=== PATIENT | male | born 1970 | race American Indian/Alaskan Native ===

== ENCOUNTER 2019-05-16 14:49 | Emergency (ER) | payer MEDICAID, OTHER, SELFPAY ==
[2019-05-16 15:17] VITALS: BP 167/96; PULSE 72; RESP 16; TEMP 36.8; O2SAT 99; BMI 24.3
--- NOTE | 2019-05-16 15:20 | DI.RAD.S_ITS ---
PROCEDURE: XR HAND LT MIN 3V INDICATIONS: hit in hand with crab pot TECHNIQUE: 3 views of the hand(s) acquired. COMPARISON: [facility], , HAND 3V LEFT, 07/03/2014, 17:23. FINDINGS: Bones: Comminuted fracture of the thumb distal phalanx. There is intra-articular extension. Soft tissues: No suspicious soft tissue calcifications. IMPRESSION: Left thumb distal phalanx fracture Dictated by: Eliseo Escobar M.D. on 05/16/2019 at 15:41 Approved by: Eliseo Escoabr M.D. on 05/16/2019 at 15:44
--- NOTE | 2019-05-16 18:22 | ED.UPPEXIN ---
HPI - Extremity Injury (Upper) General Chief Complaint: Extremity Injury, Upper Stated Complaint: LT THUMP HURTING Time Seen by Provider: 05/16/19 18:14 Source: patient Mode of arrival: ambulatory Limitations: no limitations History of Present Illness HPI narrative: 49-year-old male nonsmoker with history of hypertension and chronic pain complains of left thumb pain after crushing it and a crab pot period is closed, he denies any numbness or tingling, he has pain with motion and improvement with rest. He denies other injury and is otherwise well and free of complaint MD complaint: injury to: left Onset (ago): day(s) Other injuries: none Handedness: right Place: work Severity: moderate Relieving factors: immobilization Exacerbating factors: movement of extremity Context: direct blow Associated symptoms: denies other symptoms Related Data Home Medications Medication Instructions Recorded Confirmed amlodipine 10 mg PO DAILY #0 07/20/16 05/16/19 chlorthalidone #0 07/20/16 gabapentin 1,200 mg PO TID 05/16/19 05/16/19 hydrocodone-acetaminophen 1 tab PO Q6H PRN 05/16/19 05/16/19 nitroglycerin 0.4 mg SUBLINGUAL PRN PRN 05/16/19 05/16/19 oxycodone 5 mg PO Q8H PRN 05/16/19 05/16/19 Previous Rx's Medication Instructions Recorded atorvastatin [Lipitor] 40 mg PO HS #30 05/30/12 clopidogrel [Plavix] 75 mg PO QDAY #30 05/30/12 cyclobenzaprine 10 mg PO QHSP PRN #15 tab 08/16/16 meloxicam [Mobic] 7.5 mg PO BIDCC PRN #20 tab 11/29/16 Allergies Allergy/AdvReac Type Severity Reaction Status Date / Time Sulfa (Sulfonamide Allergy Mild RASH Unverified 05/16/19 15:20 Antibiotics) [SULFA (SULFONAMIDE ANTIBIOTICS)] Review of Systems Constitutional Denies chills, Denies fever(s), Denies lethargy and Denies weakness Eyes Denies change in vision, Denies eye discharge, Denies irritation and Denies loss of vision ENT Ears, Nose, Mouth, and Throat: Denies change in voice, Denies neck pain and Denies sore throat Cardiovascular Denies chest pain, Denies irregular heart rhythm, Denies lightheadedness, Denies palpitations, Denies dyspnea, Denies dyspnea on exertion and Denies orthopnea Respiratory Denies cough, Denies dyspnea, Denies dyspnea on exertion and Denies wheezing Gastrointestinal Gastrointestinal: Denies abdominal pain, Denies change in bowel habits, Denies diarrhea, Denies nausea and Denies vomiting Genitourinary Denies hematuria, Denies flank pain, Denies urinary incontinence and Denies urinary urgency Musculoskeletal Reports joint swelling, Reports limited range of motion and Denies neck pain Integumentary/Breasts Denies pruritus, Denies erythema, Denies rash and Denies wounds Neurologic Denies confusion, Denies loss of vision and Denies weakness Psychiatric Denies anxiety, Denies confusion, Denies depression, Denies homicidal ideation and Denies suicidal ideation Endocrine Denies palpitations Hematologic/Lymphatic Denies easy bruising Allergic/Immunologic Denies wheezing Exam Narrative Exam Narrative: GEN: AOx3 and in mild distress EYES: Pupils are equal, round, and reactive to light and accommodation. Extraoccular muscles are intact bilaterally. There is no subconjunctival hemorrhage or exudate. CHEST: Lungs are clear to auscultation bilaterally and free of wheezes, rales, or rhonchi. Heart rate is regular rhythm, there are no murmurs, clicks, rubs, or gallops. There is no chest wall tenderness. ABD: Abdomen is soft and nontender. There is no guarding or rebound. Bowel sounds are normal in all 4 quadrants. There is no mass or organomegaly. EXT: Decreased range of motion of left thumb secondary to pain, there is swelling, no subungual hematoma. Closed, isolated and neurovascularly intact SKIN: Warm, pink, and dry. No erythema or rash Initial Vital Signs Initial Vital Signs: Vital Signs Temperature 98.2 F 05/16/19 15:17 Pulse Rate 72 05/16/19 15:17 Respiratory Rate 16 05/16/19 15:17 Blood Pressure 167/96 H 05/16/19 15:17 Pulse Oximetry 99 05/16/19 15:17 Procedures Orthopedic Splinting/Casting Injury #1: Side: left Upper Extremity Injury Location: finger Upper Extremity Immobilizer: thumb spica Post splinting neuro exam: intact Post splinting vascular exam: intact Placed by: Nursing Course Orders Ordered: ED Orders 05/16/19 15:20 XR finger LT min 2V Stat Discontinued Medications Acetaminophen (Tylenol) 650 mg PO NOW ONE Stop: 05/16/19 18:17 Last Admin: 05/16/19 19:04 Dose: 650 mg Consultations Consultation #1: call to diane Dill for thumb spica and follow up Vital Signs - 8 hr 05/16/19 15:17 Temperature 98.2 F Pulse Rate 72 Respiratory Rate 16 Blood Pressure 167/96 H Pulse Oximetry 99 MDM - Extremity Injury (Upper) Imaging Data finger: Radiologist's impression: [address] [address] XRay Report Signed Patient: Hari Massey [facility]#: [id number] : 1970Acct:[id number] Age/Sex: 49 / MDate of Service: 05/16/19 Loc: ED Accession Number: [id number] Procedure: XR finger LT min 2V Ordering Provider: Regina Nava MD PROCEDURE: XR HAND LT MIN 3V INDICATIONS: hit in hand with crab pot TECHNIQUE: 3 views of the hand(s) acquired. COMPARISON: [facility], , HAND 3V LEFT, 07/03/2014, 17:23. FINDINGS: Bones: Comminuted fracture of the thumb distal phalanx. There is intra-articular extension. Soft tissues: No suspicious soft tissue calcifications. IMPRESSION: Left thumb distal phalanx fracture Dictated by: Eliseo Escobar M.D. on 05/16/2019 at 15:41 Approved by: Eliseo Escobar M.D. on 05/16/2019 at 15:44 Discharge Plan Departure Patient Disposition: Home Clinical Impression: Fracture of thumb Qualifiers: Encounter type: initial encounter Fracture type: closed Phalanx: distal Fracture alignment: nondisplaced Laterality: left Qualified Code(s): S62.525A - Nondisplaced fracture of distal phalanx of left thumb, initial encounter for closed fracture Instructions: DI for Finger Fracture Activity Restrictions/Additional Instructions: *You have been diagnosed with [left thumb fracture with joint involvement] *What to do: *Take medications as directed *Follow up with [facility] in 2-3 days, call for an appointment. Let them know you were seen in the Emergency Department and that we ask that you be seen in follow up *Return to ER if you should have any new, worsening or concerning symptoms Prescriptions: No Action atorvastatin [Lipitor] 40 MG tablet 40 mg PO HS Qty: 30 RF: 5 clopidogrel [Plavix] 75 MG tablet 75 mg PO QDAY Qty: 30 RF: 5 chlorthalidone 25 MG tablet Qty: 0 RF: 0 amlodipine 10 MG tablet 10 mg PO DAILY Qty: 0 RF: 0 cyclobenzaprine 10 MG tablet 10 mg PO QHSP PRNQty: 15 RF: 0 meloxicam [Mobic] 7.5 MG tablet 7.5 mg PO BIDCC PRNQty: 20 RF: 0 gabapentin 600 mg tablet 1,200 mg PO TID RF: 0 hydrocodone-acetaminophen 5-325 mg tablet 1 tab PO Q6H PRN (Reason: Pain, Moderate) RF: 0 nitroglycerin 0.4 mg tablet, sublingual 0.4 mg sublingual PRN PRN (Reason: Chest Pain) RF: 0 oxycodone 5 mg tablet 5 mg PO Q8H PRN (Reason: Pain, Moderate) RF: 0 Referrals: Salinas Nagy MD [Physician] -
[2019-05-16] MEDS: ACETAMINOPHEN 325 MG TABLET 650 MG PO (19:04)
== END 2019-05-16 19:10 | disposition home or self-care (01) ==
PROVIDERS: Emergency Provider Emergency Medicine
DX: S62.525A Nondisplaced fracture of distal phalanx of left thumb, initial encounter for closed fracture (principal); W23.0XXA Caught, crushed, jammed, or pinched between moving objects, initial encounter
CPT/HCPCS: 73140; 99282; 99283

== ENCOUNTER → 2019-09-25 10:34 | Outpatient (CLI) | payer MEDICAID, OTHER, SELFPAY ==
--- NOTE | 2019-09-25 | DI.US.S_ITS ---
PROCEDURE: US SCROTUM INDICATIONS: RIGHT TESTICULAR PAIN TECHNIQUE: Real-time scanning was performed of the scrotum and testicles, with image documentation. Color and pulse Doppler interrogation was performed of both testicles. COMPARISON: 04/28/2019. FINDINGS: Right: Testicle is normal in size at 3.7 x 2 x 2.7 cm, and homogenous in echotexture. Epididymis is normal in overall size and morphology. Previously seen right subcentimeter epididymal cyst is no longer present. No hydrocele or varicoceles. Overlying scrotal skin is normal in thickness. Left: Testicle is normal in size at 3 x 5 x 2 x 2.7 cm, and homogeneous in echotexture. Epididymis is normal in overall size and morphology. No hydrocele or varicoceles. Overlying scrotal skin is normal in thickness. Doppler: Color and pulse Doppler demonstrate normal and symmetric arterial flow in both testicles. IMPRESSION: Negative exam. No abnormal identified to explain right testicular pain. No hydrocele. Dictated by: Barak Sánchez M.D. on 09/25/2019 at 17:07 Approved by: Barak Sánchez M.D. on 09/25/2019 at 17:10
== END ==
PROVIDERS: Visit Provider Family Medicine
DX: N50.811 Right testicular pain (principal)
CPT/HCPCS: 76870

== ENCOUNTER 2021-05-19 08:30 | Emergency (ER) | payer MEDICAID, OTHER, SELFPAY ==
[2021-05-19 08:53] VITALS: BP 147/89; PULSE 81; RESP 16; TEMP 36.8; O2SAT 97; BMI 25.8
--- NOTE | 2021-05-19 08:53 | ED.GENADULT ---
HPI - General Adult General Chief complaint: Chest Pain Stated complaint: fell and hurt ribs and hit head on cement Time Seen by Provider: 05/19/21 08:52 History of Present Illness HPI narrative: Patient is a 51-year-old male. Here for evaluation of right-sided rib discomfort. States that 2 days ago he was running when he tripped over curb falling forward and hitting his right sided ribs. He did hit his head but there was no loss of consciousness. He has no residual head issues. He describes pain on the right side of his chest. Worse with palpation and movement and deep breathing. He states he could not sleep last night because of the discomfort. Decided to come in today to get it evaluated. Has not tried anything for the symptoms prior to arrival. Related Data Home Medications Medication Instructions Recorded Confirmed amlodipine 10 mg tablet 10 mg PO DAILY #0 07/20/16 05/16/19 chlorthalidone 25 mg tablet #0 07/20/16 gabapentin 600 mg tablet 1,200 mg PO TID 05/16/19 05/16/19 hydrocodone 5 mg-acetaminophen 325 1 tab PO Q6H PRN 05/16/19 05/16/19 mg tablet nitroglycerin 0.4 mg sublingual 0.4 mg SUBLINGUAL PRN PRN 05/16/19 05/16/19 tablet oxycodone 5 mg tablet 5 mg PO Q8H PRN 05/16/19 05/16/19 Previous Rx's Medication Instructions Recorded atorvastatin 40 mg tablet (Lipitor) 40 mg PO HS #30 05/30/12 clopidogrel 75 mg tablet (Plavix) 75 mg PO QDAY #30 05/30/12 cyclobenzaprine 10 mg tablet 10 mg PO QHSP PRN #15 tab 08/16/16 meloxicam 7.5 mg tablet (Mobic) 7.5 mg PO BIDCC PRN #20 tab 11/29/16 Allergies Allergy/AdvReac Type Severity Reaction Status Date / Time Sulfa (Sulfonamide Allergy Mild RASH Verified 05/19/21 09:53 Antibiotics) [SULFA (SULFONAMIDE ANTIBIOTICS)] Review of Systems Constitutional Constitutional: Denies fatigue, Denies fever(s), Denies frequent falls and Denies headache(s) Eyes Eyes: Reports system reviewed and no additional complaints, except as documented ENT Ears, Nose, Mouth, and Throat: Denies headache(s) Cardiovascular Comments: Right sided chest/rib discomfort Respiratory Comments: Pain on the right side of his chest with deep inspiration Gastrointestinal Gastrointestinal: Denies abdominal pain, Denies nausea and Denies vomiting Musculoskeletal Comments: No arm pain or leg pain Integumentary/Breasts Comments: No bruising or rashes Neurologic Neurologic: Denies frequent falls and Denies headache(s) Endocrine Endocrine: Denies fatigue Hematologic/Lymphatic On Anticoagulants: No Allergic/Immunologic Allergic/Immunologic: Reports system reviewed and no additional complaints, except as documented Patient History Medical History Chronic pain syndrome (07/20/16) Continuous illicit drug use (07/20/16) History of alcohol abuse (07/20/16) Hypertension Opiate abuse, continuous (07/20/16) Social History lives independently: Yes Smoking Status: Current some day smoker Substance Use Type: marijuana Exam Initial Vital Signs Initial Vital Signs: Vital Signs Temperature 98.2 F 05/19/21 08:53 Pulse Rate 81 05/19/21 08:53 Respiratory Rate 16 05/19/21 08:53 Blood Pressure 147/89 H 05/19/21 08:53 Pulse Oximetry 97 05/19/21 08:53 Const General: cooperative and healthy appearing [facility] Head: normal to inspection and normocephalic Eyes General: appearance normal, both eyes and all related structures Chest Other: Tenderness to palpation along the right lateral and anterior ribs. Resp Effort & Inspection: normal respiratory effort, not labored and not tachypneic Auscultation: clear to auscultation bilaterally Cardio Palpation: normal PMI GI Inspection: normal to inspection Back/Spine/Pelvis Thoracic/Lumbar Spine: No thoracic spinal tenderness and No lumbar spinal tenderness Skin General: no rashes or lesions noted Neuro General: patient alert, patient awake, patient oriented x3 and moves all extremities Extrem General: normal to inspection and capillary refill normal Psych Appearance: grossly normal Scores GCS Giorgio coma scale eye opening: Spontaneous [place] coma scale verbal response: Orientated Giorgio coma scale motor response: Obey commands [place] coma scale total score: 15 Nexus Score for C-Spine Focal Neurologic deficit present: No Midline spinal tenderness present: No Altered level of conciousness present: No Intoxication present: No Distracting Injury Present: No Nexus Criteria for C-spine: 0 Course Orders Ordered: ED Orders 05/19/21 08:52 XR ribs RT min 3V w CXR1V Stat EKG-12 Lead Stat Vital Signs Vital signs: Vital Signs - 8 hr 05/19/21 08:53 Temperature 98.2 F Pulse Rate 81 Respiratory Rate 16 Blood Pressure 147/89 H Pulse Oximetry 97 Medical Decision Making Imaging Data Rib x-ray: Radiologist's Impression: [address] [id number] ReportSigned Patient: Hari Massey AMR#: [id number]: 1970Acct:[id number]/Sex: 51 / MDate of Service: 05/19/21Loc: EDAccession Number: [id number] Procedure: XR ribs RT min 3V w CXR1V Ordering Provider: Zac Pedraza D.O. PROCEDURE: XR RIBS RT MIN 3V W CXR 1V INDICATIONS: R lateral/anterior lower rib pain TECHNIQUE: 2 views of the right ribs were acquired, along with a single view chest. COMPARISON: None. FINDINGS: Surgical changes and devices: None. Bones and chest wall: No fractures or dislocations. No suspicious bony lesions. Overlying soft tissues appear unremarkable. Lungs and pleura: No pleural effusions or pneumothorax. Lungs appear clear. Mediastinum: Mediastinal contours appear normal. Heart size is normal. IMPRESSION: No trauma found. No underlying pneumonia seen. Depending on the clinical status follow-up by nuclear medicine bone scan may become necessary. Dictated by: Mariusz Lambert M.D. on 05/19/2021 at 9:46 Approved by: Mariusz Lambert M.D. on 05/19/2021 at 9:46 ECG Data Attestation: I personally reviewed and interpreted this ECG as follows: Interpretation: Sinus rhythm Ventricular rate 81 Normal axis Normal QRS LVH Normal QTC No ST T wave changes MDM Narrative Medical decision making narrative: No respiratory distress, not hypoxic, no fractures noted on the x-ray. I did discuss this with the patient. We will start with Tylenol. We did discuss strict return precautions. He expressed understanding and agreement. Discharge Plan Departure Patient Disposition: Home Clinical Impression: Contusion of rib on right side Instructions: DI for Rib Contusion Activity Restrictions/Additional Instructions: There were no fractures noted on the x-rays. You can take Tylenol for any discomfort. Return to the emergency department for any fevers, worsening problems breathing, or any other new or worsening symptoms. Continue all of your medications as directed. Prescriptions: No Action atorvastatin [Lipitor] 40 MG tablet 40 mg PO HS Qty: 30 RF: 5 clopidogrel [Plavix] 75 MG tablet 75 mg PO QDAY Qty: 30 RF: 5 chlorthalidone 25 MG tablet Qty: 0 RF: 0 amlodipine 10 MG tablet 10 mg PO DAILY Qty: 0 RF: 0 cyclobenzaprine 10 MG tablet 10 mg PO QHSP PRNQty: 15 RF: 0 meloxicam [Mobic] 7.5 MG tablet 7.5 mg PO BIDCC PRNQty: 20 RF: 0 gabapentin 600 mg tablet 1,200 mg PO TID RF: 0 hydrocodone-acetaminophen 5-325 mg tablet 1 tab PO Q6H PRN (Reason: Pain, Moderate) RF: 0 nitroglycerin 0.4 mg tablet, sublingual 0.4 mg sublingual PRN PRN (Reason: Chest Pain) RF: 0 oxycodone 5 mg tablet 5 mg PO Q8H PRN (Reason: Pain, Moderate) RF: 0
[2021-05-19] MEDS: ACETAMINOPHEN 325 MG TABLET 650 MG PO (10:19)
[2021-05-19 10:20] VITALS: BP 137/80; PULSE 65; O2SAT 98
== END 2021-05-19 10:21 | disposition home or self-care (01) ==
PROVIDERS: Emergency Provider Emergency Medicine
DX: S20.211A Contusion of right front wall of thorax, initial encounter (principal); R07.9 Chest pain, unspecified; W19.XXXA Unspecified fall, initial encounter
CPT/HCPCS: 71101; 93005; 93010; 99283; 99284

== ENCOUNTER 2021-09-12 13:31 | Emergency (ER) | payer MEDICAID, OTHER, SELFPAY ==
[2021-09-12 13:34] VITALS: BP 148/89; RESP 18
[2021-09-12 13:35] VITALS: BP 148/89; PULSE 65; PULSE 66; RESP 18; TEMP 36.7; O2SAT 97; O2SAT 99
[2021-09-12 14:00] VITALS: BP 129/69; PULSE 63; RESP 16; O2SAT 97
[2021-09-12 14:30] VITALS: BP 129/68; PULSE 58; RESP 13; O2SAT 97
[2021-09-12 15:00] VITALS: BP 184/82; PULSE 72; RESP 19; O2SAT 98
--- NOTE | 2021-09-12 15:29 | ED.ALCOHOL ---
HPI - Alcohol <Ella Pak, [facility] - Last Filed: 09/12/21 15:38> General Chief Complaint: Toxicology Problem Stated Complaint: Unconscious Time Seen by Provider: 09/12/21 14:54 Source: patient and EMS Mode of arrival: EMS History of Present Illness HPI narrative: 51-year-old male endorses taking an unknown drug a few hours ago which he thinks may have been laced with fentanyl, or it may have been a Percocet 30. Patient was brought in by ambulance after receiving 2 mg of Narcan just prior to arrival. He was found to be unresponsive at home, diaphoretic, and having agonal respirations with pulses. Patient did not receive any CPR. Patient woke up immediately after his Narcan administration, currently he is awake, alert, cooperative, and pleasant in the emergency department without any complaints. Patient sources making a bad decision, he did have Narcan available but did not educate anyone around him that it was in his bag. Patient wishes to leave the emergency department as soon as possible and does not plan on staying here. Patient denies any nausea or vomiting, vision changes, fever, or any other problems. Patient reports that he usually just uses marijuana and does not usually use opiates so today when he took a pill for his pain he thought it would just make him feel better not make him stop breathing. Related Data Home Medications Medication Instructions Recorded Confirmed amlodipine 10 mg tablet 10 mg PO DAILY #0 07/20/16 05/16/19 chlorthalidone 25 mg tablet #0 07/20/16 gabapentin 600 mg tablet 1,200 mg PO TID 05/16/19 05/16/19 hydrocodone 5 mg-acetaminophen 325 1 tab PO Q6H PRN 05/16/19 05/16/19 mg tablet nitroglycerin 0.4 mg sublingual 0.4 mg SUBLINGUAL PRN PRN 05/16/19 05/16/19 tablet oxycodone 5 mg tablet 5 mg PO Q8H PRN 05/16/19 05/16/19 Previous Rx's Medication Instructions Recorded atorvastatin 40 mg tablet (Lipitor) 40 mg PO HS #30 05/30/12 clopidogrel 75 mg tablet (Plavix) 75 mg PO QDAY #30 05/30/12 cyclobenzaprine 10 mg tablet 10 mg PO QHSP PRN #15 tab 08/16/16 meloxicam 7.5 mg tablet (Mobic) 7.5 mg PO BIDCC PRN #20 tab 11/29/16 Allergies Allergy/AdvReac Type Severity Reaction Status Date / Time Sulfa (Sulfonamide Allergy Mild RASH Verified 09/12/21 13:43 Antibiotics) [SULFA (SULFONAMIDE ANTIBIOTICS)] Review of Systems <TAMELA Jackson - Last Filed: 09/12/21 15:38> Review of Systems Narrative: General: denies fever, chills Head/Neck: denies headache, neck pain Eyes: denies visual changes, eye pain Cardio: denies chest pain, palpitations Respiratory: denies shortness of breath, cough GI: denies abdominal pain, nausea, vomiting, or diarrhea : denies dysuria, hematuria MSK: denies joint pain, muscle weakness, endorses chronic left upper leg pain which he took this pill for Skin: denies rash, itching Neuro: denies numbness, tingling Patient History <TAMELA Jackson - Last Filed: 09/12/21 15:38> Medical History Chronic pain syndrome (07/20/16) Continuous illicit drug use (07/20/16) History of alcohol abuse (07/20/16) Hypertension Opiate abuse, continuous (07/20/16) Social History lives independently: Yes Smoking Status: Current some day smoker Smoking Status: Current some day smoker alcohol intake frequency: 0-2 drinks per day Substance Use Type: marijuana, prescription drug and unknown Exam <TAMELA Jackson - Last Filed: 09/12/21 15:38> Narrative Exam Narrative: Independently reviewed vitals signs and nursing notes. General: Awake, alert, nontoxic, no cardiorespiratory distress Head/Neck: Atraumatic, neck full range of motion Eyes: EOMI, conjunctiva normal, pupils 2 mm bilaterally and reactive Nose: nares patent, no rhinorrhea Mouth/Throat: moist mucus membranes, posterior pharynx normal, no oral lesions Cardio: Regular rate and rhythm, no peripheral edema Respiratory: respirations unlabored without wheezing, stridor, or rales. No retractions. GI: Abdomen soft, nontender MSK: Moves all extremities, neurovascularly intact Skin: Normal capillary refill, no rash Neuro: Normal speech and cognition, normal gait, pleasant, cooperative, Initial Vital Signs Initial Vital Signs: Vital Signs Respiratory Rate 18 09/12/21 13:34 Blood Pressure 148/89 H 09/12/21 13:34 Course <TAMELA Jackson - Last Filed: 09/12/21 15:38> Orders Ordered: ED Orders 09/12/21 15:00 Urine Drug Screen, Rapid Stat Vital Signs Vital signs: Vital Signs - 8 hr 09/12/21 13:34 09/12/21 13:35 09/12/21 14:00 Temperature 98.1 F Pulse Rate 66 63 Respiratory Rate 18 18 16 Blood Pressure 148/89 H 148/89 H 129/69 Pulse Oximetry 97 97 09/12/21 14:30 09/12/21 15:00 Temperature Pulse Rate 58 L 72 Respiratory Rate 13 19 Blood Pressure 129/68 184/82 H Pulse Oximetry 97 98 MDM - Alcohol <TAMELA Jackson - Last Filed: 09/12/21 15:38> Lab Data Labs: Lab Results 09/12/21 Range/Units 15:00 U Opiates 300ng/mL cut Negative (Negative) Ur Oxycodone Screen Negative (Negative) Urine Methadone Screen Negative (Negative) Ur Barbiturates Screen Negative (Negative) U Tricyclic Antidepress Negative (Negative) Ur Phencyclidine Scrn Negative (Negative) Ur Amphetamines Screen Negative (Negative) U Methamphetamines Scrn Negative (Negative) Ur MDMA Scrn (Ecstasy) Negative (Negative) U Benzodiazepines Scrn Negative (Negative) Urine Cocaine Screen Negative (Negative) U Marijuana (THC) Screen Positive H (Negative) MDM Narrative Medical decision making narrative: 51-year-old male presents to the emergency department after being found down at a friend's house after ingesting unknown drug. He thought it was up Percocet 30 mg or something with fentanyl, he was unresponsive, diaphoretic, with agonal respirations on scene and was given 2 mg of Narcan in each near and became awake and alert at that time. Patient has not had any episodes of somnolence or decreased mentation since he has been here. Patient wishes to leave the emergency department at this time and declines staying for observation. Patient does have Narcan in his bag with him, and wishes to go to his sister's house and he reports he will show her where his narcan is incase he needs more that later. Patient was educated that the likelihood he will need more is very high and he needs to be under close observation. Patient's UDS was Positive for marijuana and opiates. Patient was awake, alert, interactive, and reports he has enough of his Narcan to last, and he promises to be in observation by his sister for the rest of the day, and he will inform her where his Narcan is. Patient is appropriate and amenable to discharge home. Vital signs are stable on repeat examination is unremarkable. Patient has been informed of results. Patient has been given strict return to ER precautions for any new or worsening symptoms. Patient understands to follow up closely with outpatient providers as instructed. Patient understands plan and agrees to discharge home. All questions and concerns answered at this time. Discharge Plan Departure Patient Disposition: Home Clinical Impression: Opiate or related narcotic overdose Instructions: Substance Use Disorder Activity Restrictions/Additional Instructions: Hari, is was nice to meet you today, you got jose this time. Please show your sister where your Narcan is and go home and have her watch you very closely for the rest of the day. I would like you to stay in the emergency department for the next 4-6 hours to watch to make sure you do not need another dose of narcan but if you feel better going home, this is okay as well. I want you to have Narcan available with you at all time and if you are doing drugs which I suggest that you stop doing, make sure who ever is watching you nose were your Narcan is in case she stop breathing. I see people have overdoses from fentanyl very often, and sometimes do not survive, I do not want that to happen to you. Please stop doing drugs. Live to see another day, continue do range of motion and light exercise to help with your pain. That is the best thing you can do is focused on her health. Please return if you have any new or worsening symptoms. Keep Narcan on you at all times. *What to do: *Please continue to take your regular medications as directed. [ ] New medication prescriptions sent to your pharmacy: [ ] [ ] New medication written as a paper prescription [ x] No new medications given *Please follow up with your primary care provider in 2-3 days, call for an appointment. Let them know you were seen in the Emergency Department and that we ask that you be seen in follow up. We will electronically transmit a record of today's note if your PCP is in our system *If you do not have a primary care provider please contact the [facility] Resource line at [phone]. They will ask some questions about your medical history and help get you set up with a doctor in the community. *Return to Emergency Department if you should have any new, worsening or concerning symptoms, such as [fever greater than 101F, chills, worsening pain, persistent vomiting or other bothersome symptoms] Prescriptions: No Action atorvastatin [Lipitor] 40 MG tablet 40 mg PO HS Qty: 30 5RF clopidogrel [Plavix] 75 MG tablet 75 mg PO QDAY Qty: 30 5RF chlorthalidone 25 MG tablet Qty: 0 0RF amlodipine 10 MG tablet 10 mg PO DAILY Qty: 0 0RF cyclobenzaprine 10 MG tablet 10 mg PO QHSP PRNQty: 15 0RF meloxicam [Mobic] 7.5 MG tablet 7.5 mg PO BIDCC PRNQty: 20 0RF gabapentin 600 mg tablet 1,200 mg PO TID 0RF Label Comments: TAKE 2 TS PO TID FOR NERVE PAIN hydrocodone-acetaminophen 5-325 mg tablet 1 tab PO Q6H PRN (Reason: Pain, Moderate) 0RF Label Comments: TK 1 T PO Q 6 H PRF MODERATE PAIN nitroglycerin 0.4 mg tablet, sublingual 0.4 mg sublingual PRN PRN (Reason: Chest Pain) 0RF Label Comments: DISSOLVE 1 T UNDER THE TONGUE Q 5 MINUTES PRN TO PREVENT CHEST PAIN oxycodone 5 mg tablet 5 mg PO Q8H PRN (Reason: Pain, Moderate) 0RF Label Comments: TK 1 T PO Q 8 H PRF MODERATE PAIN FOR UP TO 7 DAYS
[2021-09-12 16:40] LABS: UR Morphine/Opiate cutoff 300 Negative (Negative); Ur Creatinine Normal (Normal); Ur Specific Gravity Normal (Normal); Urine Amphetamines Negative (Negative); Urine Barbiturates Negative (Negative); Urine Benzodiazepines Negative (Negative); Urine Cocaine Negative (Negative); Urine MDMA Negative (Negative); Urine Methadone Negative (Negative); Urine Methamphetamines Negative (Negative); Urine Oxycodone Negative (Negative); Urine Phencyclidine Negative (Negative); Urine Tetrahydrocannabinol Positive (Negative); Urine Tricyclic Antidepressant Negative (Negative); Urine pH Normal (Normal)
== END 2021-09-12 15:44 | disposition home or self-care (01) ==
PROVIDERS: Emergency Provider Nurse Practitioner Critical Care Medicine
DX: T40.601A Poisoning by unspecified narcotics, accidental (unintentional), initial encounter (principal); R55 Syncope and collapse; F17.200 Nicotine dependence, unspecified, uncomplicated
CPT/HCPCS: 80305; 99283